=== PATIENT | female | born 1980 | race Caucasian/White ===

== ENCOUNTER 2022-07-19 13:18 | Outpatient (RCR) | payer OTHER, SELFPAY | END 2023-01-15 23:59 | disposition home or self-care (01) | LOC: CCIC 13:18 | PROVIDERS: PCP Family Medicine; Visit Provider Nurse Practitioner Family | DX: C50.912 Malignant neoplasm of unspecified site of left female breast (principal); Z17.0 Estrogen receptor positive status [ER+]; Z79.810 Long term (current) use of selective estrogen receptor modulators (SERMs); R51.9 Headache, unspecified | CPT/HCPCS: 99212; 99213; 99214 ==

== ENCOUNTER 2022-08-02 12:52 | Outpatient (CLI) | payer OTHER, SELFPAY ==
--- NOTE | 2022-08-02 13:00 | CRLHL7_ITS ---
For Patients: As a result of the Century Cures Act, medical imaging exams and procedure reports are released immediately into your electronic medical record. You may view this report before your referring provider. If you have questions, please contact your health care provider. INDICATION: New onset of headaches. TECHNIQUE: Brain MRI with contrast. The following sequences were obtained: Axial/Sagittal T1 weighted sequence. DWI and ADC mapping sequences. Axial FLAIR and KATHARINE T2 weighted sequences. T1 weighted post-contrast sequence(s). 15 cc of Dotarem gadolinium based contrast agent was used. COMPARISON: Brain MRI from 09/04/2018. FINDINGS: No evidence of acute ischemia. No evidence of acute or chronic intracranial blood products. No mass or pathologic intracranial enhancement. No intracranial signal abnormality. No hydrocephalus or extra-axial collections. The pituitary gland, parasellar structures and optic chiasm are normal. Posterior fossa is normal. All the major intracranial vascular structures demonstrate normal flow-related signal. The orbital contents are normal. No calvarial or skull base marrow signal abnormality. No obstructive sinus disease. No extracranial soft tissue findings. IMPRESSION: 1. No significant intracranial pathology. Dictated by Roderick Simmons MD @ 08/02/2022 5:22:10 PM (Electronically Signed)
--- NOTE | 2022-08-02 15:00 | CRLHL7_ITS ---
For Patients: As a result of the Century Cures Act, medical imaging exams and procedure reports are released immediately into your electronic medical record. You may view this report before your referring provider. If you have questions, please contact your health care provider. INDICATION: Follow-up nodules COMPARISON: 07/27/2021 TECHNIQUE: Quinones scale and color Doppler images were acquired of the thyroid gland. FINDINGS: The thyroid gland demonstrates normal uniform echogenicity and has a smooth outer contour. The right lobe measures 4.2 x 1.3 x 1.3 cm and the left lobe measures 3.7 x 0.7 x 1.1 cm in size. The isthmus measures 2 millimeters. Hypoechoic nodule inferior pole right thyroid lobe measures 5 x 3 x 4 millimeters, previously measuring 5 x 3 x 4 millimeters. Hypoechoic nodule inferior pole left thyroid lobe measures 10 x 2 x 5 millimeters, previously measuring 10 x 3 x 5 millimeters. The color Doppler images demonstrate normal vascularity. There is no evidence of cervical lymphadenopathy or parathyroid mass. IMPRESSION: Stable small nodules bilaterally measuring 1 cm or less. Dictated by James Lubin MD @ 08/05/2022 10:17:12 AM (Electronically Signed)
== END 2022-08-02 12:53 | disposition home or self-care (01) ==
LOC: MRI 12:53
PROVIDERS: PCP Family Medicine; Visit Provider Surgery
DX: R51.9 Headache, unspecified (principal); E04.1 Nontoxic single thyroid nodule
CPT/HCPCS: 70553; 76536; A9575

== ENCOUNTER 2023-07-01 11:00 | Outpatient (RCR) | payer OTHER, SELFPAY ==
--- NOTE | 2023-01-21 13:00 | ONC.NURNOTE ---
Patient called office stating that [facility] is not able to fill her prescription as they note that they have been sending requests for [facility] to contact them. Reel Cutter contacted [facility] pharmacy at [phone], and given a #90 day refill on behalf of [facility] based on her note and verbal order. Patient aware.
== END 2023-08-12 23:59 | disposition home or self-care (01) ==
LOC: CCIC 11:00
PROVIDERS: PCP Family Medicine; Visit Provider Internal Medicine Hematology & Oncology
DX: C50.912 Malignant neoplasm of unspecified site of left female breast (principal); Z17.0 Estrogen receptor positive status [ER+]; Z79.811 Long term (current) use of aromatase inhibitors; R23.2 Flushing
CPT/HCPCS: 99212; 99214; 99215

== ENCOUNTER 2024-02-09 14:50 | Outpatient (RCR) | payer OTHER, SELFPAY | END 2024-02-09 23:59 | disposition home or self-care (01) | LOC: CCIC 14:50 | PROVIDERS: PCP Family Medicine; Visit Provider Physician Assistant | DX: C50.912 Malignant neoplasm of unspecified site of left female breast (principal); Z17.0 Estrogen receptor positive status [ER+]; Z79.811 Long term (current) use of aromatase inhibitors; R23.2 Flushing; M85.80 Other specified disorders of bone density and structure, unspecified site; F52.0 Hypoactive sexual desire disorder; N94.10 Unspecified dyspareunia; L29.2 Pruritus vulvae | CPT/HCPCS: 76536; 99212; 99214; 99215; G0463 ==

== ENCOUNTER 2024-04-01 11:00 | Outpatient (CLI) | payer OTHER, SELFPAY ==
--- NOTE | 2024-04-01 11:15 | CRLHL7_ITS ---
For Patients: As a result of the Cures Act, medical imaging exams and procedure reports are released immediately into your electronic medical record. You may view this report before your referring provider. If you have questions, please contact your health care provider. LEFT BREAST IMPLANT ULTRASOUND INDICATION History of LEFT-sided breast cancer. Prior LEFT mastectomy with implant/reconstruction. Silicone implant. Prophylactic RIGHT mastectomy with implant/reconstruction. The patient feels a superficial lump along the superomedial margin of the LEFT breast implant. Ultrasound for further evaluation. TECHNIQUE Directed ultrasound of the LEFT breast implant. FINDINGS There is a curvilinear 7 mm echogenic structure along the superior margin of the LEFT breast implant at the 10 o`clock position 5 cm from the nipple corresponding to the patient`s palpable abnormality. This could reflect curvilinear dystrophic calcification, capsular calcification, or less likely subtle focal silicone extravasation. These findings were discussed in detail with the patient. Further imaging should be based on clinical grounds. Ultrasound follow-up may be helpful only if this palpable region enlarges. IMPRESSION Curvilinear calcification with shadowing at the 10 o`clock position 5 cm from the LEFT nipple. BI-RADS Category 2: Benign A lay language report of this examination will be provided to the patient. FITO CORTES M.D. Diagnostic/Nuclear Medicine Radiologist [email or web address] SHIRAZ:silas rosen/Dictated by: Fito Cortes MD @ 04/01/2024 12:08:00 PM (Electronically Signed)
== END 2024-04-01 11:01 | disposition home or self-care (01) ==
LOC: US 11:00
PROVIDERS: PCP Family Medicine; Visit Provider Physician Assistant
DX: N63.20 Unspecified lump in the left breast, unspecified quadrant (principal); Z85.3 Personal history of malignant neoplasm of breast
CPT/HCPCS: 76604

== ENCOUNTER 2024-07-15 10:17 | Outpatient (CLI) | payer OTHER, SELFPAY ==
--- NOTE | 2024-07-15 10:30 | CRLHL7_ITS ---
For Patients: As a result of the Century Cures Act, medical imaging exams and procedure reports are released immediately into your electronic medical record. You may view this report before your referring provider. If you have questions, please contact your health care provider. DXA BONE MINERAL DENSITY STUDY Current height (in): 64. Weight (lb): 150.0. Menopause age: 37. Ethnicity: White. 1. Have you had a previous hip or vertebral fracture? No. 2. Have you had any fractures during your adult life which did not result from significant trauma (e.g., auto accident)? No. 3. Did either of your parents have a hip fracture? No. 4. Do you smoke? No. 5. Have you ever taken Glucocorticoids? No. 6. Do you have rheumatoid arthritis? No. 7. Do you have secondary osteoporosis? No. 8. Do you drink 3 or more alcoholic drinks per day? No. 9. Are you being treated for osteoporosis? No. 10. Have you ever taken any of the following medications: Yes, Vitamin D, Calcium, HRT. 11. Do you have any of the following medical conditions: Yes, Cancer, Hysterectomy. 12. What was your maximum height (inches)? 64. 13. Do you perform weight bearing exercise regularly? Yes. 14. Do you regularly consume dairy products? Yes. 15. Do you drink caffeinated beverages? Yes. 16. At what age did your period start? 16. 17. Are you premenopausal? No. 18. How many full term pregnancies have you had? 2. 19. Have you ever missed your period for more than 6 months in a row (not including or menopause)? No. TECHNIQUE: Bone mineral density study was performed using the [employer]icam. FINDINGS: The results of the study expressed as bone mineral density (BMD) are as follows: Lumbar spine L1to L4: BMD: 0.832 g/cm2. T-score: -2.0. Z-score: -1.6. Neck Left: BMD: 0.637 g/cm2. T-score: -1.9. Z-score: -1.5. Right: BMD: 0.561 g/cm2. T-score: -2.6. Z-score: -2.2. Total Left: BMD: 0.797 g/cm2. T-score: -1.2. Z-score: -0.9. Right: BMD: 0.756 g/cm2. T-score: -1.5. Z-score: -1.3. IMPRESSION: Osteoporosis. Compared with scan of 02/07/2022, the bone mineral density has decreased by 7.4 percent at the spine and decreased by 8.6 percent at the hip. Soham Read M.D. Diagnostic Radiologist [email or web address] LYSSA/marva / DW/Dictated by: Soham Read MD @ 07/16/2024 8:22:00 AM (Electronically Signed)
== END 2024-07-15 10:18 | disposition home or self-care (01) ==
LOC: RAD 10:18
PROVIDERS: PCP Family Medicine; Visit Provider Physician Assistant
DX: C50.919 Malignant neoplasm of unspecified site of unspecified female breast (principal); M81.0 Age-related osteoporosis without current pathological fracture; Z79.811 Long term (current) use of aromatase inhibitors; E55.9 Vitamin D deficiency, unspecified
CPT/HCPCS: 77080

== ENCOUNTER 2024-09-22 11:30 | Outpatient (RCR) | payer OTHER, SELFPAY ==
[2024-07-15 11:12] LABS: Albumin* 4.9 g/dL (3.3-5.0); Chloride* 105 mmol/L (96-114)
[2024-07-15 11:13] LABS: Potassium* 4.4 mmol/L (3.6-5.1); Sodium* 139 mmol/L (135-149)
[2024-07-15 11:15] LABS: Anion Gap 7 mEq/L (7-15); Aspartate Amino Transferase* 28 U/L (12-35); Bilirubin Total* 0.8 mg/dL (0.1-1.5); Carbon Dioxide* 27 mmol/L (20-32); Estimated Glomerular Filt Rate 72 ml/min; Total Protein* 8.4 g/dL (6.0-8.3)
[2024-07-15 11:16] LABS: Alanine Aminotransferase* 18 U/L (4-35); Alkaline Phosphatase* 80 U/L (40-150); Blood Urea Nitrogen* 15 mg/dL (5-24); Glucose* 87 mg/dL (60-115)
[2024-07-17 02:06] LABS: Vitamin D, 1,25-Dihydroxy 66.1 pg/mL (19.9-79.3)
--- NOTE | 2024-07-22 13:35 | URNOTE ---
?Request received for authorization for Zoledronic Acid (Reclast) ([id number]). Prior authorization is not required per [facility], Ref# [id number].
[2024-08-06 11:01] VITALS: BP 133/85; PULSE 67; RESP 16; TEMP 36.8; O2SAT 100
[2024-08-06] MEDS: ZOLEDRONIC ACID 5 mg/100 ml 100 ML 400 MG IVPB (12:18)
== END 2024-09-25 23:59 | disposition home or self-care (01) ==
LOC: CCIC 11:30
PROVIDERS: Physician Assistant; PCP Family Medicine; Referring Provider Family Medicine; Visit Provider Internal Medicine Hematology & Oncology
DX: C50.912 Malignant neoplasm of unspecified site of left female breast (principal); Z17.0 Estrogen receptor positive status [ER+]; M81.0 Age-related osteoporosis without current pathological fracture; M79.10 Myalgia, unspecified site; Z90.13 Acquired absence of bilateral breasts and nipples
CPT/HCPCS: 36415; 80053; 82652; 96365; 96374; 99214; 99215; G0463; J3489

== ENCOUNTER 2025-08-25 12:00 | Outpatient (RCR) | payer BC, SELFPAY ==
--- NOTE | 2025-08-09 12:58 | ONC.NURNOTE ---
patient phoned today to follow up on her call last week, requesting orders for annual reclast Dr Henderson phoned patient today- she was instructed to establish care with a PCP- who can order any needed medications for osteoporosis follow up, since she is no longer on an AI,- further management should proceed with PCP
--- NOTE | 2025-08-18 10:38 | ONC.NURNOTE ---
Diagnosis: Osteoporosis
[2025-08-25 12:12] LABS: Albumin* 4.8 g/dL (3.3-5.0); Chloride* 104 mmol/L (96-114); Sodium* 139 mmol/L (135-149)
[2025-08-25 12:13] LABS: Potassium* 4.5 mmol/L (3.6-5.1)
[2025-08-25 12:15] LABS: Alanine Aminotransferase* 16 U/L (4-35); Anion Gap 8 mEq/L (7-15); Aspartate Amino Transferase* 27 U/L (12-35); Blood Urea Nitrogen* 11 mg/dL (5-24); Carbon Dioxide* 27 mmol/L (20-32); Cholesterol* 237 mg/dL (90-199); Creatinine* 0.9 mg/dL (0.5-1.5); Est. Creatinine Clearance* 68.88; Estimated Glomerular Filt Rate 81 ml/min; Total Protein* 8.7 g/dL (6.0-8.3); Triglycerides* 65 mg/dL (40-149)
[2025-08-25 12:16] LABS: Alkaline Phosphatase* 62 U/L (40-150); Bilirubin Total* 0.9 mg/dL (0.1-1.5); Calcium* 10.0 mg/dL (8.4-10.6); Glucose* 94 mg/dL (60-115); HDL Cholesterol* 84 mg/dL (>=50)
[2025-08-25 13:15] VITALS: BP 142/92; PULSE 744; RESP 444; TEMP 36.3; O2SAT 99
== END 2025-09-24 23:59 | disposition home or self-care (01) ==
LOC: CCIC 12:00
PROVIDERS: Internal Medicine; PCP Family Medicine; Referring Provider Family Medicine; Visit Provider Internal Medicine Hematology & Oncology
DX: C50.912 Malignant neoplasm of unspecified site of left female breast (principal); Z17.0 Estrogen receptor positive status [ER+]; M81.0 Age-related osteoporosis without current pathological fracture; Z79.83 Long term (current) use of bisphosphonates; Z13.6 Encounter for screening for cardiovascular disorders
CPT/HCPCS: 36415; 80053; 80061; 96365; 99213; 99214; G0463; J3489